=== PATIENT | female | born 1995 | race Caucasian/White ===

== ENCOUNTER → 2018-01-25 | Outpatient (CLI) | payer OTHER ==
[~2018-01-25] MED LIST: BIRTH CONTROL
--- NOTE | 2018-01-25 18:30 | RADIOLOGY IMAGING REPORT ---
FACILITY: [facility] PATIENT NAME: Chelita Moreno : 1995 MR: [id number] V: [id number] EXAM DATE: ORDERING PHYSICIAN: LINDA ESTRELLA TECHNOLOGIST: Location: [facility] [place] Patient: Chelita Moreno : 1995 Visit/Account:[id number] Date of Sevice: 01/25/2018 EXAMINATION: CT head without IV contrast HISTORY: Headache. Blurred vision. Pain in back of head. Lightheaded. TECHNIQUE: Axial CT images of the head were obtained from the vertex to the skull base without IV c ontrast, with coronal and sagittal 2D reconstructed images. One of the following dose optimization techniques was utilized in the performance of this exam: Autom ated exposure control; adjustment of the mA and/or kV according to the patient's size; or use of an i terative reconstruction technique. Specific details can be referenced in the facility's radiology C T exam operational policy. COMPARISON: 05/24/2016. FINDINGS: The intracranial contents are unremarkable. No CT evidence of intracranial hemorrhage, mass lesion, or acute infarct. No midline shift or extra-axial fluid collections. Hartley-white differentiation is maintained. The calvarium is intact. The visualized paranasal sinuses and mastoid air cells are unopacified. IMPRESSION: Unremarkable noncontrast head CT. Report Dictated By: Elder Willard MD at 01/25/2018 6:23 PM Report E-Signed By: Elder Willard MD at 01/25/2018 6:26 PM WSN:[email or web address]
== END ==
LOC: CT 17:46
PROVIDERS: ATTEND Family Medicine
DX: G44.52 New daily persistent headache (NDPH) (principal)
CPT/HCPCS: 70450